=== PATIENT | female | born 1990 | race Caucasian/White ===

== ENCOUNTER 2017-12-28 21:11 | Emergency (ER) | payer OTHER ==
[~2017-12-28] VITALS: Ht 160 cm; Wt 60.5 kg
[2017-12-28 21:19] VITALS: BP 151/84; PULSE 89; TEMP 36.7; O2SAT 100; Ht 160 cm; Wt 60.5 kg
[2017-12-28] MEDS ORDERED: GELATIN SPONGE 12-7MM EXT STA (21:32)
--- NOTE | 2017-12-28 21:58 | EMERGENCY ROOM VISIT NOTE ---
ED Visit Note First contact with patient: 21:24 CHIEF COMPLAINT: Left index finger laceration HISTORY OF PRESENT ILLNESS: This 27 year old female patient presents to the emergency department, ambulatory, approximately 12 hours after cutting the anterior aspect of the pad of the left index finger on a joce. The patient immediately bandaged the wound with gauze and tape. When she attempted to remove and change the bandage this evening, the gauze was sticking to the wound , and she was unable to get it off. She ran the bandage under water and attempted to peel it away from the wound without success. She states the pain has worsened and the bleeding re-started. The bleeding has not stopped. There is no weakness or numbness of the area. Tetanus shot is up-to-date. Full range of motion of the finger. The patient rates the pain as stinging and 0/10. REVIEW OF SYSTEMS: A 6 system review of systems was completed with positives and pertinent negatives listed in the HPI. ALLERGIES: None MEDICATIONS: None PMH: None SOCIAL HISTORY: The patient lives locally. She denies drug, alcohol, tobacco use. PHYSICAL EXAM: Vital Signs: Reviewed Nurse's notes, vital signs stable. GENERAL : This is a 27 year old female, in no acute distress, well-developed, well- nourished. SKIN: There is a 1 cm long avulsion laceration on the anterior aspect of the distal phalanx of the left index finger. It is superficial and the top layer of skin has been avulsed. There is no foreign material in the wound and it looks clean. There is active bleeding. No deep structures are seen in the base of the wound. Extension and flexion of the left index finger is full and strong. Sensation to pain and light touch is intact. EMERGENCY DEPARTMENT COURSE: I examined the patient. Verbal consent was obtained to perform the procedure. The gauze was carefully removed from the wound without difficulty. The left index finger was cleaned with saline and betadine. Gelfoam was applied to the avulsion laceration and the area was dressed with a pressure dressing. The bleeding stopped. The patient tolerated the procedure well. Discharge instructions reviewed. The patient was discharged home in stable condition. I attest that I have personally reviewed the patient's current medication list. Patient was found to have normal blood pressure on screening and does not require follow-up. Differential diagnosis includes avulsion, laceration, contusion, fracture, sprain/strain, tendon or ligament injury, neurovascular compromise, foreign body , assault, and others DIAGNOSIS: Avulsion laceration of the left index finger The chart was completed utilizing [employer] voice recognition software. Grammatical errors, random word insertions, pronoun errors, and incomplete sentences are an occasional consequence of this system due to software limitations, ambient noise, and hardware issues. Any formal questions or concerns about the content, text, or information contained within the body of this dictation should be directly addressed to the provider for clarification. Current/Historical Medications No Active Prescriptions or Reported Meds Allergies Coded Allergies: No Known Allergies (Unverified , 12/28/17) Vital Signs Date Time Temp Pulse Resp B/P (MAP) Pulse Ox O2 Delivery O2 Flow Rate FiO2 12/28/17 21:19 36.7 89 16 151/84 100 Room Air Medications Administered Medications (Trade) Dose Ordered Sig/Abundio Route Start Time Stop Time Status Last Admin Dose Admin Gelatin (Surgifoam Sponge 12-7MM (SMALL)) 1 ea NOW STAT EXT 12/28/17 21:32 12/28/17 21:33 DC 12/28/17 21:49 1 EA Departure Information Impression Primary Impression: Avulsion of skin of finger without complication Dispostion Home / Self-Care Condition GOOD Prescriptions No Active Prescriptions or Reported Meds Referrals No Doctor, Assigned (PCP) Patient Instructions ED Gelfoam Dressing, [facility] Additional Instructions You have been treated in the Emergency Department today for your fingertip, skin avulsion. Leave the GELFOAM and dressing in place for the next 48 hours. Keep the dressing clean and dry until time for removal. To remove the GELFOAM dressing, remove the overlying tape and then soak the wound in warm water until the piece of GELFOAM can be easily removed. Proper wound care is essential for adequate wound healing and infection prevention. You can shower and clean the wound with soap and water. Do not scour over the wound, pat dry with a towel. You can use an antibiotic ointment with a dressing/bandage over the wound for the next 3-4 days. After this time you may leave the wound dry and open to the air. Look for signs of infection of the wound including: increased pain, swelling, foul discharge, streaking, or increased temperature. If any of these are noticed you should return to the Emergency Department for further assessment and treatment. As with any laceration you may have received nerve damage to the surrounding tissues. This damage could be permanent. For pain control, you can use the following [id number] medicines (if >12 yo): Ibuprofen(Motrin, Advil) may be used for fever or pain. Use 600mg every six hours as needed. Take with food. Avoid using more than 2400mg in a 24 hour period. Do not use 2400mg per day for more than three consecutive days without physician direction. Prolonged inappropriate use can lead to stomach upset or ulcers. (AND/OR) Acetaminophen(Tylenol) may be used for fever or pain. Use 1000mg every six hours as needed. Avoid using more than 3000mg in a 24 hour period. Return to the emergency department if your symptoms worsen despite treatment course outlined above. Problem Qualifiers Primary Impression: Avulsion of skin of finger without complication Encounter type: initial encounter Qualified Codes: S61.209A - Unspecified open wound of unspecified finger without damage to nail, initial encounter
== END 2017-12-28 22:07 | disposition home or self-care (01) ==
LOC: C.EDB 21:13 → C.EDD 22:07
DX: S61.211A Laceration without foreign body of left index finger without damage to nail, initial encounter (principal); W27.4XXA Contact with kitchen utensil, initial encounter; Y92.9 Unspecified place or not applicable